=== PATIENT | female | born 1970 | race Caucasian/White ===

== ENCOUNTER 2022-02-13 16:37 | Outpatient (CLI) | payer BC, SELFPAY ==
--- NOTE | 2022-02-13 16:50 | XR_ITS ---
WS: [email or web address] XR knee RT 3V* [id number] REASON FOR EXAM: Right knee pain FINDINGS: No fracture or focal bone lesion. The medial and lateral joint spaces of the right knee are relatively well preserved with mild subchon dral sclerosis. Mild narrowing of the patellofemoral joint space with mild subchondral sclerosis and small osteophyto sis of the patella. XR/XR knee RT 3V* [id number] IMPRESSION: Mild changes of osteoarthritis as above.
--- NOTE | 2022-02-13 16:50 | XR_ITS ---
WS: [email or web address] XR hip RT 2-3V wo/w pel* [id number] REASON FOR EXAM: Right hip pain FINDINGS: No fracture or focal bone lesion. The joint space is relatively well-preserved. There is subchondral sclerosis with marginal osteophyto sis of the acetabulum. No significant soft tissue abnormality. XR/XR hip RT 2-3V wo/w pel* [id number] IMPRESSION: Mild changes of osteoarthritis as above.
== END 2022-02-13 16:38 | disposition home or self-care (01) ==
LOC: RAD 16:42
PROVIDERS: PCP Family Medicine; Visit Provider Family Medicine
DX: M16.11 Unilateral primary osteoarthritis, right hip (principal); M17.11 Unilateral primary osteoarthritis, right knee
CPT/HCPCS: 73502; 73562

== ENCOUNTER → 2022-06-13 07:58 | Outpatient (BNVA) | payer BC, SELFPAY | PROVIDERS: PCP Family Medicine; Visit Provider Family Medicine | DX: Z00.00 Encounter for general adult medical examination without abnormal findings (principal); Z13.220 Encounter for screening for lipoid disorders; M25.50 Pain in unspecified joint; R25.2 Cramp and spasm | CPT/HCPCS: 80053; 80061; 82550; 83735; 85025; 85651; 86038; 86141; 86431 ==

== ENCOUNTER → 2022-06-25 11:46 | Outpatient (BNVA) | payer BC, SELFPAY | PROVIDERS: PCP Family Medicine; Visit Provider Family Medicine | DX: R76.8 Other specified abnormal immunological findings in serum (principal); M25.50 Pain in unspecified joint | CPT/HCPCS: 86003; 86008 ==

== ENCOUNTER 2022-09-03 15:14 | Outpatient (CLI) | payer BC, SELFPAY ==
--- NOTE | 2022-09-03 15:20 | MM_ITS ---
WS: [email or web address] BILATERAL 3D TOMOSYNTHESIS DIGITAL SCREENING MAMMOGRAPHY WITH CAD CLINICAL INFORMATION: Screening mammogram HISTORY: Screening mammogram. No current complaints. COMPARISON: July 04, 2021 TECHNIQUE: Bilateral CC and MLO views. FINDINGS: The breasts are composed of heterogeneous fibroglandular density tissue, which can limit the detectio n of small underlying mass lesions. No suspicious mass, asymmetry, calcifications, or architectural d istortion. No evidence of malignancy. Incidental punctate and clustered calcifications bilaterally ap pear stable. MM/[place] [id number] IMPRESSION: BI-RADS: 2-Benign FOLLOW UP: 1 Year Follow-up Recommend return to annual screening mammography.
== END 2022-09-03 15:15 | disposition home or self-care (01) ==
LOC: RAD 15:16
PROVIDERS: PCP Family Medicine; Visit Provider Family Medicine
DX: Z12.31 Encounter for screening mammogram for malignant neoplasm of breast (principal)
CPT/HCPCS: 77063; 77067

== ENCOUNTER → 2022-10-15 10:12 | Outpatient (BNVA) | payer BC, SELFPAY | PROVIDERS: PCP Family Medicine; Visit Provider Internal Medicine Rheumatology | DX: Z79.899 Other long term (current) drug therapy (principal); M19.90 Unspecified osteoarthritis, unspecified site; M45.6 Ankylosing spondylitis lumbar region | CPT/HCPCS: 36415; 80076; 82306; 82565; 82784; 83516; 85025; 85651; 86140; 86160; 86162; 86200; 86235; 86255; 86376; 86812 ==

== ENCOUNTER 2022-10-27 17:21 | Outpatient (CLI) | payer BC, SELFPAY ==
--- NOTE | 2022-10-27 17:26 | XR_ITS ---
WS: [email or web address] Exam: XR sacroiliac jts m 3V [id number] Date/Time of Exam: 10/27/2022 5:27 PM Reason For Exam: M54.9 - Dorsalgia, unspecified No fracture or bone destruction noted. Moderate degenerative change of both SI joints. The SI joints are open. Osteopenia. XR/XR sacroiliac jts m 3V [id number] IMPRESSION: 1. 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 2. No other significant finding.
--- NOTE | 2022-10-27 17:26 | XR_ITS ---
WS: [email or web address] Exam: XR lumbar spine 2-3V* [id number] Date/Time of Exam: 10/27/2022 5:27 PM Reason For Exam: M54.9 - Dorsalgia, unspecified No fracture or dislocation. Disc spaces are preserved. There is dextroscoliosis at the thoracolumbar junction. Osteopenia. Mild facet DJD at all levels. XR/XR lumbar spine 2-3V* [id number] IMPRESSION: 1. No fracture or malalignment. 2. Osteopenia and mild degenerative changes. Thoracolumbar scoliosis.
== END 2022-10-27 17:22 | disposition home or self-care (01) ==
PROVIDERS: PCP Family Medicine; Visit Provider Internal Medicine Rheumatology
DX: M54.9 Dorsalgia, unspecified (principal); M85.88 Other specified disorders of bone density and structure, other site; M46.1 Sacroiliitis, not elsewhere classified; M41.9 Scoliosis, unspecified
CPT/HCPCS: 72100; 72202

== ENCOUNTER 2022-11-21 14:00 | Outpatient (CLI) | payer BC, SELFPAY ==
--- NOTE | 2022-11-21 14:00 | XR_ITS ---
WS: [email or web address] DEXA (DUAL ENERGY X-RAY ABSORPTIOMETRY) Bone mineral density was performed using a [employer] machine. HISTORY: M81.0 - Age-related osteoporosis without current pathological fracture... COMPARISON: None available. Lumbar spine BMD (L1-L4): 0.920 g/cm2 T score: -2.2 Z score: -1.7 Total hip BMD: Left: 0.951 g/cm2. T score: -0.5 Z score: 0.0 Right: 0.915 g/cm2. T score: -0.7 Z score: -0.3 10 year probability of a major osteoporotic fracture is 9.2%. XR/XR DEXA axial skeleton* [id number] IMPRESSION: OSTEOPENIA based upon the WHO classification for females.
== END 2022-11-21 14:01 | disposition home or self-care (01) ==
LOC: RAD 14:03
PROVIDERS: PCP Family Medicine; Visit Provider Internal Medicine Rheumatology
DX: M81.0 Age-related osteoporosis without current pathological fracture (principal); M85.89 Other specified disorders of bone density and structure, multiple sites
CPT/HCPCS: 77080

== ENCOUNTER 2023-01-01 11:46 | Outpatient (CLI) | payer BC, SELFPAY | END 2023-01-01 11:47 | disposition home or self-care (01) | PROVIDERS: PCP Family Medicine; Visit Provider Internal Medicine Rheumatology | DX: A04.8 Other specified bacterial intestinal infections (principal) | CPT/HCPCS: 87338 ==

== ENCOUNTER → 2023-04-08 09:33 | Outpatient (BNVA) | payer OTHER, SELFPAY | PROVIDERS: Visit Provider Internal Medicine Rheumatology | DX: M06.041 Rheumatoid arthritis without rheumatoid factor, right hand (principal); M06.042 Rheumatoid arthritis without rheumatoid factor, left hand; M47.816 Spondylosis without myelopathy or radiculopathy, lumbar region; Z79.899 Other long term (current) drug therapy; M13.80 Other specified arthritis, unspecified site; R76.8 Other specified abnormal immunological findings in serum; Z84.0 Family history of diseases of the skin and subcutaneous tissue; Z82.69 Family history of other diseases of the musculoskeletal system and connective tissue | CPT/HCPCS: 99214 ==

== ENCOUNTER 2023-08-06 12:20 | Outpatient (CLI) | payer OTHER, SELFPAY ==
[2023-08-06 13:56] LABS: Basophils # 0.1 10^3/uL (0.0-0.1); Basophils % 1.1 %; Eosinophils # 0.1 10^3/uL (0.0-0.8); Eosinophils % 1.2 %; Hematocrit 38.3 % (36-47); Lymphocytes # 1.4 10^3/uL (0.8-4.8); Lymphocytes % 23.8 %; Mean Corpuscular HGB Conc 32.1 g/dL (30-55); Mean Corpuscular Hemoglobin 28.4 pg (27-33); Mean Corpuscular Volume 88.5 fl (85-98); Mean Platelet Volume 10.4 fL (7.4-10.4); Monocytes # 0.5 10^3/uL (0.2-0.9); Neutrophils # 3.68 10^3/uL (1.8-7.7); Neutrophils % 64.7 %; Nucleated Red Blood Cells % 0 %; Platelet Count 243 10^3/cmm (157-399); Red Blood Count 4.33 10^6/uL (3.85-5.65); Red Cell Distribution Width 12.4 % (12.1-15.1); White Blood Count 5.68 10^3/uL (3.29-11.43)
[2023-08-06 14:16] LABS: Alanine Aminotransferase 14 U/L (0-33); Albumin Level 4.1 g/dL (3.5-5.2); Alkaline Phosphatase 77 U/L (35-105); Anion Gap 12.9 (5-19); Aspartate Amino Transferase 16 U/L (0-32); Blood Urea Nitrogen 15 mg/dL (6-20); Calcium 9.3 mg/dL (8.5-10.5); Carbon Dioxide 28 mmol/L (22-29); Chloride 105 mmol/L (98-107); Globulin 2.2 g/dL (1.3-4.6); Glomerular Filtration Rate 87.5 mL/min (90-130); Glucose 78 mg/dL (65-115); Immunoglobulin IGA 112 mg/dL (70-400); Immunoglobulin IGG 816 mg/dL (700-1600); Immunoglobulin IGM 64 mg/dL (40-230); Osmolality Calculated 294 mOsm/kg (285-295); Potassium 3.9 mmol/L (3.5-5.1); Sodium 142 mmol/L (136-145); Total Bilirubin 0.2 mg/dL (0.15-1.2); Total Protein 6.3 g/dL (6.6-8.7)
[2023-08-06 14:17] LABS: C Reactive Protein 8.8 mg/L (0.0-4.9); Glomerular Filtration Rate 87.5 mL/min (90-130)
[2023-08-10 07:55] LABS: Tissue Transglutaminse AB IGA <1.0 U/mL
[2023-08-11 13:10] LABS: Liver Kidney Microsome (LKM-1) <=20.0 U (<=20.0)
== END 2023-08-06 12:21 | disposition home or self-care (01) ==
PROVIDERS: Internal Medicine Rheumatology; PCP Family Medicine; Visit Provider Nurse Practitioner Family
DX: K52.9 Noninfective gastroenteritis and colitis, unspecified (principal); R10.11 Right upper quadrant pain; R76.8 Other specified abnormal immunological findings in serum; M06.041 Rheumatoid arthritis without rheumatoid factor, right hand; M06.042 Rheumatoid arthritis without rheumatoid factor, left hand; M47.816 Spondylosis without myelopathy or radiculopathy, lumbar region; Z79.899 Other long term (current) drug therapy
CPT/HCPCS: 36415; 80053; 82248; 82565; 82784; 83516; 85025; 86140; 86364; 86376

== ENCOUNTER 2023-08-10 17:10 | Outpatient (CLI) | payer OTHER, SELFPAY ==
--- NOTE | 2023-08-10 17:15 | XR_ITS ---
WS: [email or web address] XR chest 2V* [id number] REASON FOR EXAM: Pleural effusion/ANITHA positive FINDINGS: No comparison examination. Moderate tortuosity of the thoracic aorta. Normal heart size. Calcified granulomas disease in both hemithoraces. No acute or subacute pulmonary parenchymal abnormality. Minimal blunting of the costophrenic angles. Mild levoscoliosis of the thoracic spine with moderate degenerative spondylosis. IMPRESSION: Possible pleural effusion or pleural effusions, small. No active lung disease.
== END 2023-08-10 17:11 | disposition home or self-care (01) ==
LOC: RAD 17:11
PROVIDERS: PCP Family Medicine; Visit Provider Family Medicine
DX: J90 Pleural effusion, not elsewhere classified (principal); R76.0 Raised antibody titer
CPT/HCPCS: 71046

== ENCOUNTER 2023-08-11 07:56 | Outpatient (CLI) | payer OTHER, SELFPAY ==
[2023-08-12 17:24] LABS: Campylobacter Group NOT DETECTED (NOT DETECTED); Norovirus GI/GII NOT DETECTED (NOT DETECTED); Rotavirus A NOT DETECTED (NOT DETECTED); Shiga Toxin 1 NOT DETECTED (NOT DETECTED); Shigella Species NOT DETECTED (NOT DETECTED); Vibrio Group NOT DETECTED (NOT DETECTED); Yersinia Enterocolotica NOT DETECTED (NOT DETECTED)
[2023-08-17 20:09] LABS: Pancreatic Elastase-1 >500 mcg/g
== END 2023-08-11 07:57 | disposition home or self-care (01) ==
LOC: LAB 07:57
PROVIDERS: PCP Family Medicine; Visit Provider Nurse Practitioner Family
DX: K52.9 Noninfective gastroenteritis and colitis, unspecified (principal)
CPT/HCPCS: 83520; 83993; 87506

== ENCOUNTER → 2023-11-10 11:50 | Outpatient (BNVA) | payer OTHER, SELFPAY | PROVIDERS: PCP Family Medicine; Visit Provider Internal Medicine Rheumatology | DX: Z79.899 Other long term (current) drug therapy (principal); M06.041 Rheumatoid arthritis without rheumatoid factor, right hand; M06.042 Rheumatoid arthritis without rheumatoid factor, left hand | CPT/HCPCS: 36415; 80076; 82565; 85025; 86140 ==

== ENCOUNTER 2024-05-02 07:30 | Outpatient (CLI) | payer OTHER, SELFPAY ==
--- NOTE | 2024-05-02 07:30 | MM_ITS ---
WS: [email or web address] SCREENING DIGITAL BREAST TOMOSYNTHESIS MAMMOGRAM WITH CAD HISTORY: screening COMPARISON: 09/03/2022, 07/04/2021, 04/03/2018 Bilateral CC and MLO with tomosynthesis and synthetic mammography submitted. Computer aided detection analyzed. Breast composition: The breasts are heterogeneously dense, which may obscure small masses. Scattered asymmetries continue to involute slowly over the past several mammograms. Very similar appearance to the asymmetry in the upper outer quadrant of the RIGHT breast as a study from 2018. No suspicious mas ses are identified. There are a few benign scattered calcifications. MM/MM scr tomosynthesis [id number] IMPRESSION: BI-RADS: 2 - Benign FOLLOW UP: 1 Year Follow-up
== END 2024-05-02 07:41 | disposition home or self-care (01) ==
PROVIDERS: PCP Family Medicine; Visit Provider Family Medicine
DX: Z12.31 Encounter for screening mammogram for malignant neoplasm of breast (principal); R92.333 Mammographic heterogeneous density, bilateral breasts; N64.89 Other specified disorders of breast; R92.1 Mammographic calcification found on diagnostic imaging of breast; L40.50 Arthropathic psoriasis, unspecified; Z79.899 Other long term (current) drug therapy
CPT/HCPCS: 36415; 77063; 77067; 80076; 82565; 85025; 85651; 86140

== ENCOUNTER → 2024-06-04 13:23 | Outpatient (BNVA) | payer OTHER, SELFPAY | PROVIDERS: PCP Family Medicine; Visit Provider Emergency Medicine | DX: R39.9 Unspecified symptoms and signs involving the genitourinary system (principal) | CPT/HCPCS: 87400 ==

== ENCOUNTER → 2024-09-05 08:50 | Outpatient (BNVA) | payer OTHER, SELFPAY | PROVIDERS: PCP Family Medicine; Visit Provider Family Medicine | DX: Z13.220 Encounter for screening for lipoid disorders (principal); Z51.81 Encounter for therapeutic drug level monitoring; R79.89 Other specified abnormal findings of blood chemistry | CPT/HCPCS: 36415; 80053; 80061; 82306; 85025 ==

== ENCOUNTER → 2024-12-05 12:17 | Outpatient (BNVA) | payer OTHER, SELFPAY | PROVIDERS: PCP Family Medicine; Visit Provider Internal Medicine Rheumatology | DX: Z79.899 Other long term (current) drug therapy (principal); L40.0 Psoriasis vulgaris; L40.50 Arthropathic psoriasis, unspecified | CPT/HCPCS: 80076; 82306; 82565; 85651; 86140 ==

== ENCOUNTER → 2024-12-20 14:29 | Outpatient (BNVA) | payer OTHER, SELFPAY | PROVIDERS: PCP Family Medicine; Visit Provider Orthopaedic Surgery | DX: M54.9 Dorsalgia, unspecified (principal); M54.89 Other dorsalgia | CPT/HCPCS: 72072; 72100 ==

== ENCOUNTER 2024-12-23 07:00 | Outpatient (CLI) | payer OTHER, SELFPAY ==
--- NOTE | 2024-12-23 07:15 | MR_ITS ---
WS: [email or web address] MRI LUMBAR SPINE WITHOUT CONTRAST HISTORY: Back Pain COMPARISON: Radiographs 12/20/2024 TECHNIQUE: Sagittal and axial multisequence imaging is submitted. Mild S-shaped curvature lumbar spine. Disc spaces are mildly narrowed and desiccated. No fracture or marrow edema. Conus terminates normally at L1-2 disc level. L1-L2: Normal. L2-L3: Mild disc bulging. L3-L4: Mild annular disc bulging with ligamentum flavum and facet arthritis. No stenosis. L4-L5: Very mild annular disc bulging encroaching upon the ventral thecal sac and the traversing L5 nerve roots. Moderate ligamentum flavum and facet arthropathy. No foraminal stenosis. Mild subarticular recess narrowing. L5-S1: Mild annular disc bulge with a tiny central disc protrusion. There is an additional disc protrusion with annular fissure contacting the RIGHT S1 nerve root. Mild facet arthritis. RIGHT renal cyst 9 mm. Mass centered in the uterine fundus measures 3.6 x 5.0 x 4.5 cm. There is a smaller mass on the anterior myometrium measuring 0.8 cm. MR/MR lumbar spine wo con* [id number] IMPRESSION: 1. No acute or chronic lumbar spine fracture. 2. Mild S-shaped curvature. 3. Mild disc encroachment upon the traversing L5 nerve roots. No high-grade st enosis. 4. Small central disc protrusion at L5-S1. Small disc protrusion with annular fissure contacting the RIGHT S1 nerve root. 5. Uterine mass measuring 3.6 x 5.0 x 4.5 cm. Suspect this is a fibroid. No pr ior imaging studies describing this finding. Recommend follow-up transvaginal p elvic ultrasound.
--- NOTE | 2024-12-23 08:00 | MR_ITS ---
WS: [email or web address] MRI THORACIC SPINE noncontrast HISTORY: Back Pain COMPARISON: 12/20/2024 radiograph. TECHNIQUE: Multiplanar sequences are performed in sagittal and axial planes. Mild increase in thoracic kyphosis. No marrow edema or fracture. Signal within the cord is normal. T1-2: Normal. T2-3: Shallow central disc protrusion. T3-4: Normal. T4-5: Normal. T5-6: Normal. T6-7: Normal. T7-8: Normal. T8-9: Mild foraminal narrowing and facet arthritis. T9-10: Mild to moderate bilateral foraminal stenosis with facet joint arthritis. T10-11: Mild to moderate bilateral foraminal stenosis and facet arthritis. T11-12: Normal. Upper pole LEFT renal cyst 6 mm. MR/MR thoracic spin wo con* [id number] IMPRESSION: 1. No acute or chronic thoracic spine compression fractures. 2. No vertebral body marrow edema. 3. Facet joint arthropathy from T8-9 through T10-11. Mild to moderate foramina l stenosis at T9-10 and T10-11. 4. Mild increase in thoracic kyphosis.
== END 2024-12-23 07:01 | disposition home or self-care (01) ==
PROVIDERS: PCP Family Medicine; Visit Provider Orthopaedic Surgery
DX: M51.27 Other intervertebral disc displacement, lumbosacral region (principal); M43.8X6 Other specified deforming dorsopathies, lumbar region
CPT/HCPCS: 72146; 72148

== ENCOUNTER 2025-02-27 12:37 | Outpatient (CLI) | payer OTHER, SELFPAY ==
--- NOTE | 2025-02-27 13:00 | XR_ITS ---
WS: [email or web address] SCREENING DEXA SCAN [employer] CLINICAL INFORMATION: osteoporosis COMPARISON: 2022 FINDINGS: The L1-L4 bone mineral density measures 0.919 g/cm2. This corresponds to a T score score of -2.2 and Z score of -1.6. Left femoral neck bone mineral density measures 0.949 g/cm2. This corresponds to a T score of -0.5 and Z score of 0.0. Right femoral neck bone mineral density measures 0.919 g/cm2. This corresponds to a T score -0.7of and Z score of -0.2. Mean femoral neck bone mineral density measures 0.934 g/cm2. This corresponds to a T score of -0.6 and Z score of -0.1. XR/XR DEXA axial skeleton* [id number] IMPRESSION: Osteopenia lumbar spine. Normal bone mineralization femoral necks. Patient's FRAX calculated 10 year probability for major osteoporotic fracture i s 24.6% and osteoporotic hip fracture is 1.1%. Bone density lumbar spine decreased -0.1% Bone density femoral necks increased 0.1%
== END 2025-02-27 12:38 | disposition home or self-care (01) ==
PROVIDERS: PCP Family Medicine; Visit Provider Internal Medicine
DX: Z13.820 Encounter for screening for osteoporosis (principal); M25.551 Pain in right hip; M25.561 Pain in right knee; S52.122A Displaced fracture of head of left radius, initial encounter for closed fracture; X58.XXXA Exposure to other specified factors, initial encounter; M13.80 Other specified arthritis, unspecified site; M85.88 Other specified disorders of bone density and structure, other site
CPT/HCPCS: 77080

== ENCOUNTER → 2025-03-13 13:48 | Outpatient (BNVA) | payer OTHER, SELFPAY | PROVIDERS: PCP Family Medicine; Visit Provider Family Medicine | DX: Z00.00 Encounter for general adult medical examination without abnormal findings (principal); Z13.6 Encounter for screening for cardiovascular disorders; M25.551 Pain in right hip; M25.561 Pain in right knee; M79.672 Pain in left foot; M25.50 Pain in unspecified joint; S52.122A Displaced fracture of head of left radius, initial encounter for closed fracture; X58.XXXA Exposure to other specified factors, initial encounter; M13.80 Other specified arthritis, unspecified site | CPT/HCPCS: 80053; 80061; 82306; 82310; 83970; 84439; 84443 ==

== ENCOUNTER 2025-03-27 08:05 | Outpatient (CLI) | payer OTHER, SELFPAY ==
--- NOTE | 2025-03-27 08:00 | USCV_ITS ---
Leeanne Mathew Age: 54 Gender: F : 1970 Exam Date: 03/27/2025 08:17 Ordering Phys: Elian Diaz MD Technologist: Exam Location[place] [facility] [place]ication: rt carotid bruit Risk Factors: Previous Vascular Surgery: Right Brachial BP: / Left Brachial BP: / Right Left Velocity (cm/s) Spectral Plaque Velocity (cm/s) Spectral Plaque Syst/Diast Broadening Syst/Diast Broadening 86.10/ 33.10 Prox CCA 96.40 / 34.40 82.70/ 34.00 Mid CCA 67.80 / 24.30 78.80/ 32.80 Distal CCA 93.80 / 35.20 76.50/ 29.50 Prox ICA 72.40 / 24.50 74.60/ 37.60 Mid ICA 79.50 / 33.40 136.70/62.00 Distal ICA 123.50/ 61.20 102.40 ECA 59.10 1.00 ICA/CCA 0.80 Antegrade Vertebral Antegrade 77.90/ 25.20 cm/s 60.90/ 20.10 cm/s Tri Subclavian Tri 102.0 121.1 0 0 FINDINGS Comparison: none available. No significant elevation of systolic or diastolic velocities. Waveforms are normal. Minimal carotid plaque. CONCLUSIONS Bilateral ICA stenosis less than 50%. Minimal carotid plaque. Dr. Shelby Segura DO (Electronically Signed) Final Date: 27 March 2025 11:45 S
== END 2025-03-27 08:06 | disposition home or self-care (01) ==
LOC: RAD 08:09
PROVIDERS: PCP Family Medicine; Visit Provider Family Medicine
DX: R09.89 Other specified symptoms and signs involving the circulatory and respiratory systems (principal); I65.23 Occlusion and stenosis of bilateral carotid arteries
CPT/HCPCS: 93880

== ENCOUNTER 2025-05-29 12:34 | Outpatient (CLI) | payer OTHER, SELFPAY ==
--- NOTE | 2025-05-29 12:41 | MM_ITS ---
WS: [email or web address] BILATERAL 3D TOMOSYNTHESIS DIGITAL SCREENING MAMMOGRAPHY WITH CAD CLINICAL INFORMATION: ANNUAL SCREEN HISTORY: Screening mammogram. No current complaints. COMPARISON: 2023 TECHNIQUE: Bilateral CC and MLO views. FINDINGS: The breasts are composed of heterogeneous fibroglandular density tissue, which can limit the detection of small underlying mass lesions. Increasing nodular dense breast tissue upper outer LEFT breast. Recommend LEFT breast diagnostic mammography and ultrasound if persistent. A few incidental punctate c alcifications. Vascular calcification. MM/MM [facility] tomosynthesis [id number] IMPRESSION: DENSITY: The breasts are heterogeneously dense, which may obscure small masses. BI-RADS: 0 - Incomplete: Need additional imaging evaluation FOLLOW UP: Need Additional Imaging Recommend LEFT breast diagnostic mammography and ultrasound if persistent.
== END 2025-05-29 12:35 | disposition home or self-care (01) ==
PROVIDERS: PCP Family Medicine; Visit Provider Family Medicine
DX: Z12.31 Encounter for screening mammogram for malignant neoplasm of breast (principal); R92.333 Mammographic heterogeneous density, bilateral breasts; R92.323 Mammographic fibroglandular density, bilateral breasts; R92.1 Mammographic calcification found on diagnostic imaging of breast
CPT/HCPCS: 77063; 77067